=== PATIENT | male | born 1955 | race Hispanic/Latino ===

== ENCOUNTER 2021-09-18 00:42 | Emergency (ER) | payer SELFPAY ==
[~2021-09-18] VITALS: Ht 170.2 cm; Wt 118.7 kg
[2021-09-18] MEDS ORDERED: LISI20TA33 PO (00:49)
[2021-09-18] MEDS ORDERED: METO100T5 PO (00:49)
[2021-09-18] MEDS ORDERED: OMEG10002 PO (00:49)
[2021-09-18] MEDS ORDERED: METF500T13 PO (00:50)
[2021-09-18] MEDS ORDERED: ATOR1TAB19 PO (00:50)
[2021-09-18 02:00] LABS: BASO % 0.4 % (0.0-1.0); EOS # 0.1 10^3/uL (0.0-0.5); EOS % 1.5 % (0.0-3.0); HEMATOCRIT 44.1 % (42.0-52.0); HEMOGLOBIN 15.5 g/dl (13.5-17.5); LYMPH # 2.5 10^3/uL (1.5-5.0); LYMPH % 29.4 % (24.0-44.0); MEAN CORPUSCULAR HGB CONC 35.1 g/dl (32.0-36.5); MEAN CORPUSCULAR VOLUME 90.9 fl (80.0-96.0); MONO # 0.7 10^3/uL (0.0-0.8); MONO % 8.4 % (2.0-8.0); NEUTROPHILS # 5.1 10^3/uL (1.5-8.5); NEUTROPHILS % 59.7 % (36.0-66.0); PLATELET COUNT, AUTOMATED 151 10^3/uL (150-450); RED BLOOD COUNT 4.85 10^6/uL (4.30-6.10); WHITE BLOOD COUNT 8.5 10^3/uL (4.0-10.0)
[2021-09-18] MEDS ORDERED: amLODIPine 5 MG TAB PO ONE (02:15)
[2021-09-18 02:31] LABS: BLOOD UREA NITROGEN 15 MG/DL (7-18); CALCIUM LEVEL 8.3 MG/DL (8.8-10.2); CARBON DIOXIDE LEVEL 28 MEQ/L (21-32); CHLORIDE LEVEL 107 MEQ/L (98-107); CREATININE FOR GFR 0.89 MG/DL (0.70-1.30); GLOMERULAR FILTRATION RATE > 60.0 (>49); GLUCOSE, FASTING 142 MG/DL (70-100); POTASSIUM SERUM 3.8 MEQ/L (3.5-5.1); SODIUM LEVEL 141 MEQ/L (136-145)
[2021-09-18] MEDS ORDERED: NORV5TAB PO (04:23)
[2021-09-18 04:34] VITALS: BP 201/95
== END 2021-09-18 04:41 | disposition home or self-care (01) ==
LOC: M ED 00:42
DX: I10 Essential (primary) hypertension (principal); R00.1 Bradycardia, unspecified; I45.19 Other right bundle-branch block; I44.4 Left anterior fascicular block; Z98.61 Coronary angioplasty status; Z82.49 Family history of ischemic heart disease and other diseases of the circulatory system